=== PATIENT | male | born 1975 | race Caucasian/White ===

== ENCOUNTER 2024-02-08 10:48 | Emergency (ER) | payer SELFPAY ==
[2024-02-08] MEDS: Haloperidol Lactate 5 MG/ML SDV IM ONE ×2 (11:10→12:06)
[2024-02-08 12:24] LABS: BASOPHILS PERCENT AUTO 0.3 % (0.3-3.8); EOSINOPHILS ABSOLUTE AUTO 0.1 x10-3/uL (0.0-0.6); EOSINOPHILS PERCENT AUTO 0.5 % (0.1-6.8); HEMATOCRIT 45.9 % (38.3-50.1); HEMOGLOBIN 15.3 g/dL (12.9-17.7); LYMPHOCYTES ABSOLUTE AUTO 1.8 x10-3/uL (0.5-4.5); LYMPHOCYTES PERCENT AUTO 15.8 % (15.8-45.3); MEAN CORPUSCULAR HEMOGLOBIN 29.8 pg (27.0-33.3); MEAN CORPUSCULAR HGB CONC 33.4 g/dL (28.7-35.3); MEAN CORPUSCULAR VOLUME 89.1 fL (80.8-98.7); MONOCYTES ABSOLUTE AUTO 0.6 x10-3/uL (0.0-1.2); MONOCYTES PERCENT AUTO 5.7 % (5.5-15.2); NEUTROPHILS ABSOLUTE AUTO 8.8 x10-3/uL (1.7-6.9); NEUTROPHILS PERCENT AUTO 77.7 % (40.3-71.8); PLATELET COUNT,PLT 282 x10(3)uL (117-477); RED BLOOD CELL COUNT 5.15 x10(6)uL (3.90-5.90); WHITE BLOOD CELL COUNT,WBC 11.4 x10-3/uL (3.2-10.1)
[2024-02-08 12:25] LABS: BLOOD UREA NITROGEN,BUN 7 mg/dL (7-18); BUN/CREATININE RATIO 6.4 (9-20); CALCIUM 9.7 mg/dL (8.6-10.2); CARBON DIOXIDE,CO2 26 mmol/L (21-32); CHLORIDE,CL 103 mmol/L (100-110); CREATININE 1.1 mg/dL (0.70-1.30); EST CRCL DRUG DOSING (CG) 78.59 mL/min; ESTIMATED GFR 82 mL/min (>60); GLUCOSE RANDOM 110 mg/dL (80-116); SODIUM,NA 138 mmol/L (135-145)
[2024-02-08 12:31] LABS: A/G RATIO 1.3; ALANINE AMINOTRANSFERASE,ALT 20 U/L (12-36); ALBUMIN 4.2 g/dL (3.5-5.2); ALKALINE PHOSPHATASE 86 IU/L (56-112); ASPARTATE AMNIOTRANSFERASE,AST 20 IU/L (5-25); BILIRUBIN TOTAL 0.5 mg/dL (0.1-1.3); PROTEIN TOTAL,TP 7.4 g/dL (6.0-8.0); SALICYLATE 3.6 mg/dL (<2.8)
[2024-02-08 12:55] LABS: ACETAMINOPHEN < 2 ug/mL (<2)
[2024-02-08 21:35] LABS: APPEARANCE,URINE CLEAR (CLEAR); BILIRUBIN,URINE NEGATIVE (NEGATIVE); COLOR,URINE YELLOW (YELLOW); GLUCOSE,URINE NORMAL (NORMAL); KETONES,URINE NEGATIVE (NEGATIVE); LEUKOCYTE ESTERASE,URINE NEGATIVE (NEGATIVE); NITRITE,URINE NEGATIVE (NEGATIVE); OCCULT BLOOD,URINE NEGATIVE (NEGATIVE); PROTEIN,URINE NEGATIVE (NEGATIVE); UROBILINOGEN,URINE NORMAL (NEGATIVE)
[2024-02-08 21:37] LABS: AMPHETAMINES SCREEN, URINE NEGATIVE (NEGATIVE); BARBITURATE SCREEN,URINE NEGATIVE (NEGATIVE); BENZODIAZEPINES SCREEN,URINE NEGATIVE (NEGATIVE); BUPRENORPHINE SCREEN,URINE NEGATIVE (NEGATIVE); METHADONE SCREEN, URINE NEGATIVE (NEGATIVE); METHAMPHETAMINE SCREEN, URINE NEGATIVE (NEGATIVE); OXYCODONE SCREEN,URINE NEGATIVE (NEGATIVE); THC SCREEN,URINE NEGATIVE (NEGATIVE)
== END 2024-02-09 11:27 ==
LOC: FB.ED 10:48
DX: F60.3 Borderline personality disorder (principal)
CPT/HCPCS: 36415; 80053; 80143; 80179; 80307; 81003; 84443; 85025; 93005; 96372; 99285; J1630